=== PATIENT | male | born 1990 | race African-American/Black ===

== ENCOUNTER 2020-08-14 10:44 | Emergency (ER) | payer OTHER ==
[~2020-08-14] VITALS: Ht 185.4 cm; Wt 86.2 kg
[2020-08-14] MEDS ORDERED: PREDNISONE 20 M20 MG PO (11:44)
[2020-08-14] MEDS ORDERED: PROAIR HFA8.5 GM INH (11:44)
[2020-08-14 12:00] VITALS: BP 132/72
--- NOTE | 2020-08-14 16:23 | EKG ---
[place] [address] ELECTROCARDIOGRAM REPORT Name: RADHA RIDDLE [id number] Admission: 08/14/20 Attend Phys: Discharge: 08/14/20 Date of : 89 Date of Service: 08/14/20 1106 Report #: [id number] THIS REPORT FOR: //name// [facility] ED Test Date: 2020-08-14 Test Time: 11:06:50 Pat Name: RADHA RIDDLE Department: Room: Gender: [employer] Web Developer: : 1990 Requested By: Minor Donaldson Order Number: [id number] Park MD: Geoff Reeves Measurements Intervals [place] Rate: 85 P: 38 UT: 144 QRS: 45 QRSD: 101 T: 11 QT: 353 QTc: 420 Interpretive Statements Sinus rhythm ST elev, probable normal early repol pattern No previous ECG available for comparison Electronically Signed On 08-14-2020 16:23:25 CDT by Geoff Reeves [email or web address] <ELECTRONICALLY SIGNED> By: Geoff Reeves MD, [facility] 08/14/20 1623 05 05 Geoff Reeves MD, FACC /EPI
== END 2020-08-14 12:00 | disposition home or self-care (01) ==
LOC: M.ERS 10:44
DX: J20.9 Acute bronchitis, unspecified (principal)